=== PATIENT | female | born 1995 | race Two or more races ===

== ENCOUNTER 2022-10-11 23:16 | Emergency (ER) | payer OTHER ==
[~2022-10-11] VITALS: Ht 157.5 cm; Wt 63.0 kg
[2022-10-12] MEDS ORDERED: PEPCID AC20 MG PO (03:12)
[2022-10-12] MEDS ORDERED: LEVSIN/SL0.125 MG SL (03:12)
[2022-10-12] MEDS ORDERED: ZOFRAN8 MG PO (03:12)
== END 2022-10-12 03:27 | disposition home or self-care (01) ==
LOC: ER 23:16
DX: K52.89 Other specified noninfective gastroenteritis and colitis (principal); R11.2 Nausea with vomiting, unspecified; Z20.822 Contact with and (suspected) exposure to COVID-19

== ENCOUNTER 2022-10-23 22:36 | Emergency (ER) | payer OTHER ==
[~2022-10-23] VITALS: Ht 157.5 cm; Wt 64.4 kg
[~2022-10-23 22:36] MED LIST: LEVSIN/SL0.125 MG SL; PEPCID AC20 MG PO; ZOFRAN8 MG PO
[2022-10-24] MEDS ORDERED: NORFLEX100MG PO (01:49)
[2022-10-24] MEDS ORDERED: DICLOFENAC POTA50 MG PO (01:49)
== END 2022-10-24 01:54 | disposition home or self-care (01) ==
LOC: ER 22:36
DX: M12.522 Traumatic arthropathy, left elbow (principal); M62.838 Other muscle spasm

== ENCOUNTER 2025-03-14 22:29 | Emergency (ER) | payer OTHER ==
[~2025-03-14] VITALS: Ht 154.9 cm; Wt 68.0 kg
[~2025-03-14 22:29] MED LIST changes: +DICLOFENAC POTA50 MG PO; +NORFLEX100MG PO
[2025-03-14] MEDS ORDERED: 0.9 % SODIUM CHLORIDE 1,000 ML IV ONE (23:45)
[2025-03-14] MEDS ORDERED: PROMETHAZINE HCL 50 MG/ML AMPUL IM STA (23:54)
[2025-03-14] MEDS ORDERED: FAMOTIDINE/PF 20 MG/2 ML VIAL IV PUSH STA (23:55)
[2025-03-15 00:24] LABS: BASO % 0.1 % (0.1-1.2); EOS # 0.09 (0.04-0.54); EOS % 1.1 % (0.7-7.0); LYMPH # 1.46 (1.18-3.74); LYMPH % 17.6 % (19.3-53.1); MEAN PLATELET VOLUME 10.70 fl (9.4-12.4); MONO # 0.80 (0.24-0.82); MONO % 9.7 % (4.7-12.5); NEUT # 5.90 (1.56-6.13); NEUT % 71.1 % (34.0-71.1); RED CELL DISTRIBUTION WIDTH 13.2 % (11.6-14.4)
[2025-03-15 00:59] LABS: ALT/SGPT 16.0 U/L (12-78); AST/SGOT 13.0 U/L (15-37); BILIRUBIN TOTAL 0.34 mg/dL (0.3-1.2); BUN CREA RATIO 8.0 (7.0-25.0); GFR 206.47; GLOBULINA 3.6 G/DL (2.4-3.5); GLUCOSE FASTING 92.0 mg/dL (65-100); OSMOLALITY SERUM 277.0 MOSM/KG (275-295)
[2025-03-15 01:01] LABS: CREATININE SERUM 0.37 mg/dL (0.55-1.02)
[2025-03-15 03:14] LABS: URINE APPEARANCE Clear; URINE BILIRRUBIN Negative (NEGATIVE); URINE BLOOD Negative; URINE COLOR Yellow; URINE GLUCOSE Negative (NEGATIVE); URINE KETONE Negative (NEGATIVE); URINE LEUKOCYTE Negative; URINE NITRATE Negative; URINE PROTEIN Negative (NEGATIVE); URINE UROBILINOGEN 1.0 E.U./dl
[2025-03-15 03:18] LABS: URINE BACTERIA 21.6 uL (0.0-1933); URINE EPITHELIAL CELLS 6.6 uL (0.0-38.8); URINE RBC 5.5 uL (0.0-20.8); URINE WBC 4.4 uL (0.0-23.2)
[2025-03-15 03:39] LABS: URINE CAST 0.00 uL (0.0-1.40)
[2025-03-15] MEDS ORDERED: PEPCID40 MG PO (04:15)
[2025-03-15] MEDS ORDERED: ZOFRAN8 MG PO (04:15)
== END 2025-03-15 04:32 ==
LOC: ER 22:29
PROVIDERS: General Practice
DX: O26.893 Other specified pregnancy related conditions, third trimester (principal); Z3A.28 28 weeks gestation of pregnancy; R11.10 Vomiting, unspecified